=== PATIENT | female | born 1980 | race American Indian/Alaskan Native ===

== ENCOUNTER 2017-07-21 04:44 | Emergency (ER) | payer OTHER ==
[2017-07-21 06:39] LABS: Basophils % (Auto) 0.4 % (0.0-1.8); Eosinophils % (Auto) 0.2 % (0.0-4.3); Hematocrit 30.9 % (30.3-42.9); Hemoglobin 10.2 gm/dl (10.1-14.3); Mean Corpuscular HGB Conc 33 % (30-34); Mean Corpuscular Hemoglobin 26 pg (28-32); Mean Corpuscular Volume 80 fl (79-97); Platelet Count 254 K/mm3 (140-440); Red Blood Count 3.88 M/mm3 (3.65-5.03); Red Cell Distribution Width 15.7 % (13.2-15.2); White Blood Count 9.5 K/mm3 (4.5-11.0)
[2017-07-21 06:41] LABS: Anion Gap 17 mmol/L; Blood Urea Nitrogen 14 mg/dL (7-17); Calcium 9.1 mg/dL (8.4-10.2); Carbon Dioxide 26 mmol/L (22-30); Chloride 100.4 mmol/L (98-107); Glucose 126 mg/dL (65-100); Potassium 4.7 mmol/L (3.6-5.0); Sodium 139 mmol/L (137-145)
[2017-07-21] MEDS ORDERED: TORADOL IM ONE (07:08)
[2017-07-21] MEDS ORDERED: NORCO 5/325 PO ONE (07:08)
--- NOTE | 2017-07-21 07:47 | Emergency Department Report ---
ED Chest Pain HPI - General Chief Complaint: Chest Pain Stated Complaint: CHEST PAIN Time Seen by Provider: 07/21/17 06:53 Source: EMS Mode of arrival: Stretcher Limitations: No Limitations - History of Present Illness Initial Comments: This is a 36-year-old female presents to the emergency department by EMS from home with complaint of midsternal chest pain since about 1 AM that radiates towards the upper back. It is associated with some mild shortness of breath. She denies any nausea, vomiting, fever, dysuria, vaginal bleeding or discharge. She has a past medical history of anemia. She took aspirin for her symptoms prior presentation without any relief. She denies any tobacco or illicit drug use or abuse. The patient says that she has been to the emergency department about 4 times previously for a similar set of symptoms and was told that it was pleurisy. Her primary care physician is Dr. Samayoa. She has never seen a transportation solutions manager. No recent travel or sick contacts at home. Severity scale (0 -10): 6 - Related Data Allergies Allergy/AdvReac Type Severity Reaction Status Date / Time No Known Allergies Allergy Unverified 07/21/17 05:34 Heart Score - HEART Score History: Slightly suspicious EKG: Normal Age: < 45 Risk factors: No known risk factors Troponin: < normal limit HEART Score: 0 - Critical Actions Critical Actions: 0-3 pts:0.9-1.7%risk of adverse cardiac event.Candidate for discharge ED Review of Systems ROS: Stated complaint: CHEST PAIN Other details as noted in HPI Comment: All other systems reviewed and negative Constitutional: denies: chills, fever Eyes: denies: eye pain, eye discharge, vision change ENT: denies: ear pain, throat pain Respiratory: shortness of breath. denies: cough, wheezing Cardiovascular: chest pain. denies: palpitations Gastrointestinal: denies: abdominal pain, nausea, diarrhea Genitourinary: denies: urgency, dysuria, discharge Musculoskeletal: denies: back pain, joint swelling, arthralgia Skin: denies: rash, lesions Neurological: denies: headache, weakness, paresthesias ED Past Medical Hx - Past Medical History Previous Medical History?: No - Surgical History Past Surgical History?: No - Social History Smoking Status: Never Smoker Substance Use Type: None ED Physical Exam - General Limitations: No Limitations - Other Other exam information: GENERAL: The patient is well-developed well-nourished. HENT: Normocephalic. Atraumatic. Patient has moist mucous membranes. EYES: Extraocular motions are intact. Pupils equal reactive to light bilaterally. NECK: Supple. Trachea is midline. CHEST/LUNGS: Clear to auscultation. There is no respiratory distress noted. HEART/CARDIOVASCULAR: Regular. There is no tachycardia. There is no gallop rub or murmur. ABDOMEN: Abdomen is soft, nontender. Patient has normal bowel sounds. There is no abdominal distention. SKIN: Skin is warm and dry. NEURO: The patient is awake, alert, and oriented. The patient is cooperative. The patient has no focal neurologic deficits. The patient has normal speech. MUSCULOSKELETAL: There is no tenderness or deformity. There is no limitation range of motion. There is no evidence of acute injury. BACK: No midline thoracic or lumbar tenderness to palpation, step-off or deformity. There is some reproducible upper thoracic paraspinal tenderness palpation. ED Course Vital Signs 07/21/17 07/21/17 07/21/17 05:25 06:07 06:15 Temperature Pulse Rate 89 94 H Respiratory 18 13 15 Rate Blood Pressure 138/80 126/78 Blood Pressure [Left] O2 Sat by Pulse 99 100 Oximetry 07/21/17 07/21/17 07/21/17 06:30 07:20 09:36 Temperature 98 F 97.8 F Pulse Rate 80 70 87 Respiratory 15 15 17 Rate Blood Pressure 114/51 Blood Pressure 101/74 126/66 [Left] O2 Sat by Pulse 100 100 100 Oximetry YADI score - Yadi Score Age > 65: (0) No Aspirin use within the Past 7 Days: (0) No 3 or more CAD Risk Factors: (0) No 2 or more Angina events in past 24 hrs: (0) No Known CAD with more than 50% Stenosis: (0) No Elevated Cardiac Markers: (0) No ST Deviation Greater than 0.5mm: (0) No YADI Score: 0 ED Medical Decision Making - Lab Data Result diagrams: 07/21/17 06:08 07/21/17 06:08 - EKG Data -: EKG Interpreted by [facility] EKG shows normal: sinus rhythm (with sinus arrhythmia), axis, intervals, QRS complexes, ST-T waves Rate: normal - EKG Data When compared to previous EKG there are: previous EKG unavailable Interpretation: normal EKG - Radiology Data Radiology results: image reviewed interpreted by me: Chest x-ray does not show any acute process. There are no pleural effusions, obvious pneumonia and there is no pneumothorax. - Medical Decision Making 36-year-old female presents the emergency department with some chest pain, radiation towards the back and occasional shortness of breath. The patient has no risk factors for coronary artery disease. EKG does not show any signs of a similar elevation [place], ischemia or dysrhythmia. Labs are unremarkable including negative troponins 2 and a negative d-dimer. Chest x-ray does not show any acute process. The patient was given a single Tolstoy and a shot of Toradol and on reevaluation she is feeling improved. There is no reproduction of the chest pain but there is some reproducing her upper back pain. She has a history of pleurisy and this could still be the same plus or minus some musculoskeletal discomfort. However since the patient has 4 previous ER visits for the same, and does not appear to require admission at this time, she will be given a referral for cardiology for a outpatient follow-up. She will return to the ER with any worsening of her symptoms are any acute distress. Vital signs stable throughout the course. - Differential Diagnosis FL, PE, pneumonia, pleurisy, costochondritis, GERD Critical Care Time: No Critical care attestation.: If time is entered above; I have spent that time in minutes in the direct care of this critically ill patient, excluding procedure time. ED Disposition Clinical Impression: Pleurisy Chest pain Qualifiers: Chest pain type: unspecified Qualified Code(s): R07.9 - Chest pain, unspecified Disposition: DC-01 TO HOME OR SELFCARE Is pt being admited?: No Condition: Stable Instructions: Chest Pain (ED), Pleurisy (ED), Costochondritis (ED) Additional Instructions: Please follow-up with your primary care doctor in the next few days. I have given you a referral for a local transportation solutions manager, Dr. Graham, in case she would like to follow-up regarding your intermittent chest pains. Return to the emergency department immediately with any worsening of her symptoms, shortness of breath, or any acute distress. Referrals: PRIMARY CARE, [Primary Care Provider] - 3-5 Days INBA-SUKHI SOLORZANO MD [Staff Physician] - 3-5 Days Time of Disposition: 09:18
--- NOTE | 2017-07-21 08:38 | XRay Report ---
CHEST ONE VIEW INDICATION: Chest pain. COMPARISON: None similar at this institution. FINDINGS: Portable, single, frontal chest radiograph demonstrates normal cardiomediastinal silhouette. Clear lungs. Unremarkable bones. Extrinsic EKG leads. CONCLUSION: No acute disease in the chest. Thank you for the opportunity to participate in this patient's care.
[2017-07-21 09:37] VITALS: BP 126/66
== END 2017-07-21 09:37 | disposition home or self-care (01) ==
LOC: ED 04:44
DX: R09.1 Pleurisy (principal); R07.81 Pleurodynia
CPT/HCPCS: 36415; 71010; 80048; 81025; 84484; 85025; 85379; 93005; 93010; 96372; 99285; J1885

== ENCOUNTER 2020-09-25 07:35 | Emergency (ER) | payer OTHER ==
[2020-09-25] MEDS ORDERED: ASPIRIN 325 MG TAB PO ONE (07:42)
--- NOTE | 2020-09-25 08:38 | XRay Report ---
CHEST 2 VIEWS INDICATION / CLINICAL INFORMATION: Chest Pain. COMPARISON: 07/21/2017 FINDINGS: SUPPORT DEVICES: None. HEART / MEDIASTINUM: No significant abnormality. LUNGS / PLEURA: No significant pulmonary or pleural abnormality. No pneumothorax. ADDITIONAL FINDINGS: No significant additional findings. IMPRESSION: No significant abnormality or interval change from 07/21/2017 Signer Name: Prem Rod MD FACR Signed: 09/25/2020 8:38 AM Workstation Name: [employer] [id number]
[2020-09-25 08:59] LABS: Basophils % (Auto) 0.3 % (0.0-1.8); Eosinophils % (Auto) 0.2 % (0.0-4.3); Hematocrit 36.8 % (30.3-42.9); Hemoglobin 12.2 gm/dl (10.1-14.3); Lymphocytes # (Auto) 1.7 K/mm3 (1.2-5.4); Lymphocytes % (Auto) 18.8 % (13.4-35.0); Mean Corpuscular HGB Conc 33 % (30-34); Mean Corpuscular Volume 88 fl (79-97); Monocytes # (Auto) 0.4 K/mm3 (0.0-0.8); Monocytes % (Auto) 4.5 % (0.0-7.3); Platelet Count 272 K/mm3 (140-440); Red Blood Count 4.17 M/mm3 (3.65-5.03); Red Cell Distribution Width 14.4 % (13.2-15.2)
[2020-09-25 09:23] LABS: Blood Urea Nitrogen 14 mg/dL (7-17); Calcium 9.2 mg/dL (8.4-10.2); Hemolysis Index 1
[2020-09-25 09:33] LABS: BUN/Creatinine Ratio 20
--- NOTE | 2020-09-25 10:18 | Emergency Department Report ---
ED Chest Pain HPI - General Chief Complaint: Chest Pain Stated Complaint: CHEST PAIN Time Seen by Provider: 09/25/20 10:03 Source: patient Mode of arrival: Ambulatory Limitations: No Limitations - History of Present Illness Initial Comments: This is a 40-year-old -[place] female who presents to the emergency department with a complaint of midsternal chest pain/pressure that started this morning around 4 AM. There is some radiation towards her back. Patient also says that she had some shortness of breath earlier that has since resolved. The pain is currently 7 out of 10 in intensity. It worsens with palpation and certain movements of her torso. She has not taken anything for symptoms prior to presentation. She has a past medical history of anemia. No recent travel or sick contacts at home. She denies any fever, cough, lower extremity swelling, nausea, vomiting or diaphoresis. No known alleviating factors. She denies any tobacco or illicit drug use. No family history of early heart attack or cardiac events. Severity scale (0 -10): 7 - Related Data Allergies Allergy/AdvReac Type Severity Reaction Status Date / Time No Known Allergies Allergy Verified 09/25/20 07:37 Heart Score - HEART Score History: Slightly suspicious EKG: Normal Age: < 45 Risk factors: No known risk factors Troponin: < normal limit HEART Score: 0 - Critical Actions Critical Actions: 0-3 pts:0.9-1.7%risk of adverse cardiac event.Candidate for discharge ED Review of Systems ROS: Stated complaint: CHEST PAIN Other details as noted in HPI Comment: All other systems reviewed and negative Constitutional: denies: chills, fever Eyes: denies: eye pain, vision change ENT: denies: ear pain, throat pain Respiratory: shortness of breath (resolved). denies: cough Cardiovascular: chest pain. denies: palpitations, edema Gastrointestinal: denies: abdominal pain, vomiting Genitourinary: denies: dysuria, discharge Musculoskeletal: back pain. denies: arthralgia Skin: denies: rash, lesions Neurological: denies: headache, weakness ED Past Medical Hx - Past Medical History Additional medical history: AMENIA - Surgical History Past Surgical History?: No - Social History Smoking Status: Never Smoker Substance Use Type: None ED Physical Exam - General Limitations: No Limitations - Other Other exam information: GENERAL: The patient is well-developed well-nourished. HENT: Normocephalic. Atraumatic. Patient has moist mucous membranes. EYES: Extraocular motions are intact. NECK: Supple. Trachea is midline. CHEST/LUNGS: Clear to auscultation. There is no respiratory distress noted. There is some reproducible chest pain to palpation of the midsternal chest wall, but no crepitus or deformity. HEART/CARDIOVASCULAR: Regular. There is no tachycardia. There is no murmur. ABDOMEN: Abdomen is soft, nontender. Patient has normal bowel sounds. SKIN: Skin is warm and dry. NEURO: The patient is awake, alert, and oriented. The patient is cooperative. Normal speech. MUSCULOSKELETAL: There is no tenderness or deformity. There is no limitation range of motion. ED Course Vital Signs 09/25/20 09/25/20 09/25/20 07:41 09:58 10:15 Temperature 97.4 F L Pulse Rate 94 H 91 H 75 Respiratory 18 16 23 Rate Blood Pressure 143/86 142/88 Blood Pressure 146/81 [Left] O2 Sat by Pulse 99 99 98 Oximetry 09/25/20 09/25/20 09/25/20 10:30 10:45 11:00 Temperature Pulse Rate 74 71 67 Respiratory 23 19 18 Rate Blood Pressure 130/76 139/77 132/74 Blood Pressure [Left] O2 Sat by Pulse 99 98 99 Oximetry 09/25/20 09/25/20 11:15 11:48 Temperature Pulse Rate 83 Respiratory 18 Rate Blood Pressure 124/74 124/74 Blood Pressure [Left] O2 Sat by Pulse 99 100 Oximetry YADI score - Yadi Score Age > 65: (0) No Aspirin use within the Past 7 Days: (0) No 3 or more CAD Risk Factors: (0) No 2 or more Angina events in past 24 hrs: (0) No Known CAD with more than 50% Stenosis: (0) No Elevated Cardiac Markers: (0) No ST Deviation Greater than 0.5mm: (0) No YADI Score: 0 ED Medical Decision Making - Lab Data Result diagrams: 09/25/20 08:25 09/25/20 08:25 - EKG Data -: EKG Interpreted by [facility] EKG shows normal: sinus rhythm, axis, intervals, QRS complexes, ST-T waves Rate: normal - EKG Data When compared to previous EKG there are: previous EKG unavailable Interpretation: normal EKG - Radiology Data Radiology results: image reviewed interpreted by me: Chest x-ray does not show any acute process. There are no pleural effusions, obvious pneumonia and there is no pneumothorax. No significant cardiomegaly. - Medical Decision Making This patient presents with a complaint of some midsternal chest pain with some radiation towards the back, as well as some shortness of breath that has since resolved. On examination she has normal sounding heart and lungs to au scultation. There is some reproducible midsternal chest pain to palpation. EKG is normal without morphology consistent with ST elevation myocardial infarction, dysrhythmia, or ischemia. Chest x-ray does not show any pneumonia, pleural effusions, pneumothorax, or any other acute process. The patient's labs have been unremarkable including CBC, metabolic panel, negative troponins x2 and a negative D-dimer. Vital signs have been reassuring throughout her ED course. Patient is low on the heart and YADI score. For these reasons the patient appears safe for discharge home at this time. Her contact information has been sent over to the [facility] [place], and someone from their office should be contacting her shortly for close outpatient follow-up as per our [facility] low risk chest pain protocol. She has been instructed to return to the emergency department with any worsening of her symptoms or with any acute distress. Critical Care Time: No Critical care attestation.: If time is entered above; I have spent that time in minutes in the direct care of this critically ill patient, excluding procedure time. ED Disposition Clinical Impression: Chest pain Qualifiers: Chest pain type: unspecified Qualified Code(s): R07.9 - Chest pain, unspecified Disposition: DC-01 TO HOME OR SELFCARE Is pt being admited?: No Condition: Stable Instructions: Chest Wall Pain, [facility], Nonspecific Chest Pain, Adult, Chest Pain (ED) Additional Instructions: Please follow-up with a primary care physician in the next few days. I have sent your contact information over to the [facility] and [facility] [place], and someone should be contacting you shortly for close outpatient follow-up. I will also give you a referral for one of their cardiologists, Dr. Todd. Return to the emergency department with any worsening of your symptoms, new or concerning symptoms not addressed during this current emergency department visit, or with any acute distress. Referrals: PRIMARY CARE, [Primary Care Provider] - 2-3 Days ANDREW TODD MD [Staff Physician] - 2-3 Days Time of Disposition: 11:49
[2020-09-25 11:20] VITALS: BP 124/74
[2020-09-25] MEDS ORDERED: KETOROLAC 30 MG/1 ML INJ IM ONE (11:28)
== END 2020-09-25 11:56 | disposition home or self-care (01) ==
LOC: ED 07:35
DX: R07.89 Other chest pain (principal)
CPT/HCPCS: 36415; 71046; 80048; 84484; 85025; 85379; 93005; 96372; 99284; J1885